=== PATIENT | male | born 1995 | race Caucasian/White ===

== ENCOUNTER 2016-12-30 20:46 | Emergency (ER) | payer OTHER ==
[~2016-12-30] VITALS: Ht 167.6 cm; Wt 72.7 kg
[~2016-12-30 20:46] MED LIST: AUGMENTIN875 MG PO; FLOMAX0.4 MG PO; INDOCIN25 MG PO; KEFLEX500 MG PO; MOTRIN600 MG PO; NOHOMEMEDS; NORCO 7.5/321 TABLET PO; PHENERGAN25 MG PR; PROMETHAZINE HC25 M1 PO; TRIPLE ANTIB28.35 GM TP; TYLENOL WITH C1 EACH PO; VICODIN,LORT1 TABLET PO
[2016-12-30 21:02] LABS: EOSINOPHIL (%) 0.5 % (0-5); EOSINOPHIL COUNT 0.1 K/uL (0-0.3); HEMATOCRIT 39.9 % (38.0-50.0); IMMATURE GRANULOCYTE (%) 0.5 % (0.0-0.7); IMMATURE GRANULOCYTE COUNT 0.6 K/uL; LYMPHOCYTE COUNT 5.3 K/uL (1.0-2.8); MCH 29.4 PG (29.0-34.0); MCHC 34.1 G/DL (30.0-36.0); MCV 86.4 FL (86-99); MEAN PLAT.VOLUME 9.4 uM^3 (9.0-12.4); MONOCYTE (%) 10.3 % (3-12); MONOCYTE COUNT 1.2 K/uL (0-0.8); NEUTROPHIL (%) 43.8 % (45-76); NEUTROPHIL COUNT 5.2 K/uL (1.8-6.4); PLATELET COUNT 246 K/uL (156-360); RBC DIS.WIDTH-SD 43.1 % (39-53); RED BLOOD COUNT 4.62 M/uL (4.00-5.50); WHITE BLOOD COUNT 11.9 K/uL (4.1-10.2)
[2016-12-30 21:19] LABS: AMYLASE 59 IU/L (1-118); CHLORIDE 106 mEq/L (99-109); POTASSIUM 3.6 mEq/L (3.7-5.4); SODIUM 142 mEq/L (136-147)
[2016-12-30 21:21] LABS: GLUCOSE 177 mg/dL (70-99)
[2016-12-30 21:22] LABS: ANION GAP 11 MEQ/L (2-14)
[2016-12-30 21:24] LABS: SERUM ETHYL ALCOHOL < 10 mg/dL
[2016-12-30 21:25] LABS: GFR ESTIMATE (CALCULATED) > 59 mL/min/; UREA NITROGEN (BUN) 13 mg/dL (9-23)
[2016-12-30 21:27] LABS: LIPASE 36 U/L (1.0-51.0)
[2016-12-30] MEDS ORDERED: NARCAN4 MG NS (22:01)
[2016-12-30 22:15] VITALS: BP 122/72
== END 2016-12-30 22:16 | disposition home or self-care (01) ==
LOC: EME 20:46 → EDBD 20:46 → EME 20:46
PROVIDERS: Emergency Medicine
DX: T40.1X1A Poisoning by heroin, accidental (unintentional), initial encounter (principal)
CPT/HCPCS: 80048; 81003; 82150; 83690; 85025; 86850; 86900; 86901; 93005; 99281; 99285; G0480; J2310

== ENCOUNTER 2017-07-29 22:59 | Emergency (ER) | payer OTHER ==
[~2017-07-29] VITALS: Ht 172.7 cm; Wt 72.3 kg
[~2017-07-29 22:59] MED LIST changes: +NARCAN4 MG NS
[2017-07-29] MEDS ORDERED: MEDROL DOSEPAK4 MG PO (23:43)
[2017-07-29] MEDS ORDERED: FLEXERIL10 MG PO (23:43)
[2017-07-30 00:02] VITALS: BP 118/68
== END 2017-07-30 | disposition home or self-care (01) ==
LOC: EXP 22:59 → EME 22:59 → EXP 07-30
DX: M54.5 Low back pain (principal); M79.605 Pain in left leg; F17.200 Nicotine dependence, unspecified, uncomplicated
CPT/HCPCS: 99281; 99284; J7512

== ENCOUNTER 2017-11-03 17:10 | Inpatient (IN) | payer OTHER ==
[~2017-11-03] VITALS: Ht 175.3 cm; Wt 66.0 kg
[~2017-11-03 17:10] MED LIST changes: +FLEXERIL10 MG PO; +MEDROL DOSEPAK4 MG PO
[2017-11-03 18:33] LABS: HEMATOCRIT 39.1 % (38.0-50.0); MCH 29.2 PG (29.0-34.0); MCV 83.4 FL (86-99); MEAN PLAT.VOLUME 9.8 uM^3 (9.0-12.4); PLATELET COUNT 166 K/uL (156-360); RBC DIS.WIDTH-CV 13.1 % (11.8-14.6); RBC DIS.WIDTH-SD 39.3 % (39-53); RED BLOOD COUNT 4.69 M/uL (4.00-5.50); WHITE BLOOD COUNT 13.3 K/uL (4.1-10.2)
[2017-11-03 18:44] LABS: CHLORIDE 96 mEq/L (99-109); POTASSIUM 3.9 mEq/L (3.7-5.4); SODIUM 131 mEq/L (136-147)
[2017-11-03 18:46] LABS: GLUCOSE 136 mg/dL (70-99)
[2017-11-03 18:47] LABS: ANION GAP 12 MEQ/L (2-14)
[2017-11-03 18:48] LABS: TOTAL BILIRUBIN 0.8 mg/dL (0.0-1.0)
[2017-11-03 18:50] LABS: ALKALINE PHOSPHATASE 74 IU/L (3-129); GFR ESTIMATE (CALCULATED) > 59 mL/min/ (58.99-99999)
[2017-11-03 18:51] LABS: UREA NITROGEN (BUN) 13 mg/dL (9-23)
[2017-11-03 21:25] LABS: INTER. NORMALIZED RATIO 1.3; PROTHROMBIN TIME 15.3 SEC (10.2-12.9)
[2017-11-03 21:33] LABS: PTT 29.1 SEC (25-37)
[2017-11-04 00:02] VITALS: BP 133/75
[2017-11-04 04:02] LABS: HEMATOCRIT 31.7 % (38.0-50.0); MCH 29.3 PG (29.0-34.0); MCHC 35.3 G/DL (30.0-36.0); MEAN PLAT.VOLUME 10.6 uM^3 (9.0-12.4); PLATELET COUNT 131 K/uL (156-360); RBC DIS.WIDTH-CV 13.2 % (11.8-14.6); RBC DIS.WIDTH-SD 40.1 % (39-53); RED BLOOD COUNT 3.82 M/uL (4.00-5.50); WHITE BLOOD COUNT 9.8 K/uL (4.1-10.2)
[2017-11-04 04:16] LABS: CHLORIDE 106 mEq/L (99-109); POTASSIUM 3.2 mEq/L (3.7-5.4); SODIUM 134 mEq/L (136-147)
[2017-11-04 04:18] LABS: GLUCOSE 134 mg/dL (70-99)
[2017-11-04 04:19] LABS: ANION GAP 7 MEQ/L (2-14)
[2017-11-04 04:22] LABS: GFR ESTIMATE (CALCULATED) > 59 mL/min/ (58.99-99999)
[2017-11-04 04:23] LABS: UREA NITROGEN (BUN) 12 mg/dL (9-23)
[2017-11-04 05:07] LABS: EOSINOPHIL (%) 0 % (0-5); IMMATURE GRANULOCYTE (%) 0.9 % (0.0-0.7); IMMATURE GRANULOCYTE COUNT 0.1 K/uL; INSTRUMENT ABS NEUTROPHIL CT 7.8 K/uL; MONOCYTE (%) 9.9 % (3-12); NEUTROPHIL (%) 79.3 % (45-76); NEUTROPHIL COUNT 7.8 K/uL (1.8-6.4)
[2017-11-04 08:02] VITALS: BP 110/56
[2017-11-04 10:50] LABS: HBSG INDEX 0.16
[2017-11-04 10:51] LABS: ANTI-HEPATITIS A VIRUS (IGM) Nonreactive; HAV INDEX 0.37; HPCA INDEX 15.75
[2017-11-04 10:52] LABS: ANTI-HEPATITIS B CORE (IGM) Nonreactive; HBC IgM INDEX 0.13
[2017-11-04 10:53] LABS: HIV-1/2 AB/AG COMBO Nonreactive
[2017-11-04 16:34] VITALS: BP 116/75
[2017-11-05 00:10] VITALS: BP 99/58
[2017-11-05 05:48] LABS: HEMATOCRIT 31.2 % (38.0-50.0); MCH 28.6 PG (29.0-34.0); MCHC 33.7 G/DL (30.0-36.0); MEAN PLAT.VOLUME 10.9 uM^3 (9.0-12.4); PLATELET COUNT 147 K/uL (156-360); RBC DIS.WIDTH-CV 13.9 % (11.8-14.6); RBC DIS.WIDTH-SD 43.6 % (39-53); RED BLOOD COUNT 3.67 M/uL (4.00-5.50); WHITE BLOOD COUNT 11.5 K/uL (4.1-10.2)
[2017-11-05 06:43] LABS: ANION GAP 10 MEQ/L (2-14); CHLORIDE 108 MEQ/L (99-109); GFR ESTIMATE (CALCULATED) > 59 mL/min/ (58.99-99999); GLUCOSE 117 mg/dL (70-99); SAMPLE HEMOLYSIS CHECK 0; SAMPLE ICTERIC CHECK 0; SAMPLE LIPEMIA CHECK 0; SODIUM 140 MEQ/L (136-147); UREA NITROGEN (BUN) 8 mg/dL (9-23)
[2017-11-05 07:01] LABS: POTASSIUM 3.9 MEQ/L (3.7-5.4)
[2017-11-05 07:32] LABS: VANCOMYCIN, TROUGH 4.8 MCG/ML (10-20)
[2017-11-05 08:03] VITALS: BP 121/78
[2017-11-05 15:53] LABS: INTER. NORMALIZED RATIO 1.1; PROTHROMBIN TIME 12.9 SEC (10.2-12.9)
[2017-11-05 15:56] LABS: PTT 57.1 SEC (25-37)
[2017-11-05 16:40] VITALS: BP 126/65
[2017-11-05 23:35] VITALS: BP 126/75
[2017-11-06 06:24] LABS: HEMATOCRIT 32.1 % (38.0-50.0); MCH 28.1 PG (29.0-34.0); MCHC 32.4 G/DL (30.0-36.0); MCV 86.8 FL (86-99); MEAN PLAT.VOLUME 11.5 uM^3 (9.0-12.4); PLATELET COUNT 168 K/uL (156-360); RBC DIS.WIDTH-SD 44.8 % (39-53); WHITE BLOOD COUNT 13.5 K/uL (4.1-10.2)
[2017-11-06 06:46] LABS: ANION GAP 9 MEQ/L (2-14); CHLORIDE 109 MEQ/L (99-109); GFR ESTIMATE (CALCULATED) > 59 mL/min/ (58.99-99999); GLUCOSE 94 mg/dL (70-99); POTASSIUM 3.5 MEQ/L (3.7-5.4); SAMPLE HEMOLYSIS CHECK 0; SAMPLE ICTERIC CHECK 0; SAMPLE LIPEMIA CHECK 0; SODIUM 141 MEQ/L (136-147); UREA NITROGEN (BUN) 6 mg/dL (9-23)
[2017-11-06 07:07] VITALS: BP 118/71
[2017-11-06 15:21] VITALS: BP 115/56
[2017-11-06 23:53] VITALS: BP 118/67
[2017-11-07 05:36] LABS: HEMATOCRIT 31.2 % (38.0-50.0); MCH 29.1 PG (29.0-34.0); MCV 88.1 FL (86-99); MEAN PLAT.VOLUME 10.5 uM^3 (9.0-12.4); PLATELET COUNT 206 K/uL (156-360); RBC DIS.WIDTH-CV 13.9 % (11.8-14.6); RED BLOOD COUNT 3.54 M/uL (4.00-5.50); WHITE BLOOD COUNT 11.8 K/uL (4.1-10.2)
[2017-11-07 06:18] LABS: ANION GAP 9 MEQ/L (2-14); CHLORIDE 108 MEQ/L (99-109); GFR ESTIMATE (CALCULATED) > 59 mL/min/ (58.99-99999); GLUCOSE 108 mg/dL (70-99); POTASSIUM 3.6 MEQ/L (3.7-5.4); SAMPLE HEMOLYSIS CHECK 0; SAMPLE ICTERIC CHECK 0; SAMPLE LIPEMIA CHECK 0; SODIUM 144 MEQ/L (136-147); UREA NITROGEN (BUN) 7 mg/dL (9-23)
[2017-11-07 06:50] VITALS: BP 122/80
[2017-11-07 07:30] LABS: ABS NEUTROPHIL COUNT 7.1; ATYPICAL LYMPHOCYTE 3.5 %; BAND NEUTROPHILS 2.7 % (0-8.0); EOSINOPHIL ABS CT 0.2; EOSINOPHILS 1.8 % (0-5.0); INSTRUMENT ABS NEUTROPHIL CT 5.4 K/uL; LYMPHOCYTES 26.8 % (15.0-45.0); METAMYELOCYTES 2.7 %; MYELOCYTES 2.7 %; PLAT.SUFFICIENCY ADEQUATE; SEG.NEUTROPHILS 57.1 % (46.0-76.0)
[2017-11-07 15:10] VITALS: BP 111/57
[2017-11-08 00:49] VITALS: BP 144/77
[2017-11-08 06:06] LABS: MCH 29.1 PG (29.0-34.0); MCHC 33.3 G/DL (30.0-36.0); MCV 87.3 FL (86-99); MEAN PLAT.VOLUME 10.4 uM^3 (9.0-12.4); RBC DIS.WIDTH-CV 13.7 % (11.8-14.6); RBC DIS.WIDTH-SD 43.2 % (39-53); RED BLOOD COUNT 3.78 M/uL (4.00-5.50)
[2017-11-08 06:09] LABS: PLATELET COUNT 303 K/uL (156-360)
[2017-11-08 06:37] LABS: ABS NEUTROPHIL COUNT 9.5; BAND NEUTROPHILS 0.9 % (0-8.0); EOSINOPHIL ABS CT 0.6; EOSINOPHILS 3.6 % (0-5.0); INSTRUMENT ABS NEUTROPHIL CT 8.7 K/uL; LYMPHOCYTES 23.4 % (15.0-45.0); MYELOCYTES 7.2 %; PLAT.SUFFICIENCY ADEQUATE; SEG.NEUTROPHILS 58.6 % (46.0-76.0)
[2017-11-08 06:40] LABS: ANION GAP 9 MEQ/L (2-14); CHLORIDE 105 MEQ/L (99-109); GFR ESTIMATE (CALCULATED) > 59 mL/min/ (58.99-99999); GLUCOSE 129 mg/dL (70-99); POTASSIUM 4.1 MEQ/L (3.7-5.4); SAMPLE HEMOLYSIS CHECK 0; SAMPLE ICTERIC CHECK 0; SAMPLE LIPEMIA CHECK 0; SODIUM 141 MEQ/L (136-147); UREA NITROGEN (BUN) 7 mg/dL (9-23)
[2017-11-08 07:30] VITALS: BP 114/79
[2017-11-08 23:04] VITALS: BP 134/69
[2017-11-09 06:42] LABS: ANION GAP 9 MEQ/L (2-14); CHLORIDE 104 MEQ/L (99-109); GFR ESTIMATE (CALCULATED) > 59 mL/min/ (58.99-99999); GLUCOSE 99 mg/dL (70-99); POTASSIUM 4.5 MEQ/L (3.7-5.4); SAMPLE HEMOLYSIS CHECK 0; SAMPLE ICTERIC CHECK 0; SAMPLE LIPEMIA CHECK 0; SODIUM 142 MEQ/L (136-147); UREA NITROGEN (BUN) 9 mg/dL (9-23)
[2017-11-09 06:56] LABS: HEMATOCRIT 32.9 % (38.0-50.0); MCH 28.6 PG (29.0-34.0); MCHC 32.8 G/DL (30.0-36.0); MCV 87.3 FL (86-99); MEAN PLAT.VOLUME 9.7 uM^3 (9.0-12.4); PLATELET COUNT 366 K/uL (156-360); RBC DIS.WIDTH-CV 13.8 % (11.8-14.6); RBC DIS.WIDTH-SD 43.7 % (39-53); RED BLOOD COUNT 3.77 M/uL (4.00-5.50); WHITE BLOOD COUNT 15.3 K/uL (4.1-10.2)
[2017-11-09 07:05] LABS: ABS NEUTROPHIL COUNT 6.7; ATYPICAL LYMPHOCYTE 5.2 %; BAND NEUTROPHILS 3.5 % (0-8.0); EOSINOPHIL ABS CT 0.7; EOSINOPHILS 4.3 % (0-5.0); INSTRUMENT ABS NEUTROPHIL CT 5.9 K/uL; LYMPHOCYTES 29.6 % (15.0-45.0); MYELOCYTES 6.1 %; PLAT.SUFFICIENCY INCREASED; SMUDGE CELLS 3.5
[2017-11-09 07:18] VITALS: BP 109/70
[2017-11-09] MEDS ORDERED: NICORELIEF2 MG BC (15:06)
[2017-11-09] MEDS ORDERED: AUGMENTIN875 MG PO ×2 (15:07→17:52)
[2017-11-09] MEDS ORDERED: PRADAXA150 MG PO (15:09)
[2017-11-09] MEDS ORDERED: VICODIN 5-3001 EACH PO (15:12)
[2017-11-09 16:41] VITALS: BP 110/65
[2017-11-09 17:04] VITALS: BP 109/72
== END 2017-11-09 18:13 | disposition home or self-care (01) | DRG 872 ==
LOC: EME 17:10 → EDOF 22:47 → 5EAST 22:47 → ENRESERV 22:49 → 5EAST 23:47
PROVIDERS: Hospitalist; Internal Medicine; Physician Assistant Medical
DX: A40.9 Streptococcal sepsis, unspecified (principal); L03.114 Cellulitis of left upper limb; E87.6 Hypokalemia; F11.10 Opioid abuse, uncomplicated; F17.200 Nicotine dependence, unspecified, uncomplicated; E87.2 Acidosis; I82.622 Acute embolism and thrombosis of deep veins of left upper extremity; B18.2 Chronic viral hepatitis C; I36.1 Nonrheumatic tricuspid (valve) insufficiency; I80.8 Phlebitis and thrombophlebitis of other sites
CPT/HCPCS: 73080; 73201; 73206; 80048; 80053; 80074; 80202; 83605; 85025; 85027; 85610; 85730; 86703; 87040; 87077; 87186; 87801; 93306; 93971; 99281; 99285; J0295; J2270; J2543; J3370; J7030; J7050

== ENCOUNTER 2017-12-06 16:12 | Emergency (ER) | payer OTHER ==
[~2017-12-06] VITALS: Ht 177.8 cm; Wt 71.4 kg
[~2017-12-06 16:12] MED LIST changes: +NICORELIEF2 MG BC; +PRADAXA150 MG PO; +VICODIN 5-3001 EACH PO
[2017-12-06] MEDS ORDERED: NARCAN4 MG NS (16:32)
[2017-12-06 17:40] VITALS: BP 123/77
== END 2017-12-06 17:42 | disposition home or self-care (01) ==
LOC: EME 16:12
DX: T40.1X1A Poisoning by heroin, accidental (unintentional), initial encounter (principal); R41.82 Altered mental status, unspecified; G93.89 Other specified disorders of brain; F17.200 Nicotine dependence, unspecified, uncomplicated
CPT/HCPCS: 99281; 99283; J2310